=== PATIENT | female | born 1995 | race Caucasian/White ===

== ENCOUNTER 2022-06-04 07:43 | Observation (INO) | payer MEDICAID ==
[2022-06-04] MEDS ORDERED: PNV1TABL50 MT (11:03)
== END 2022-06-04 11:20 | disposition home or self-care (01) ==
LOC: 8 EST LDRP 07:43
PROVIDERS: ADMIT Obstetrics & Gynecology; ATTEND Obstetrics & Gynecology
DX: O62.9 Abnormality of forces of labor, unspecified (principal); O26.893 Other specified pregnancy related conditions, third trimester; R10.9 Unspecified abdominal pain; Z3A.39 39 weeks gestation of pregnancy
CPT/HCPCS: 59025; 76805; 76818; G0378; 99281

== ENCOUNTER 2022-06-07 08:53 | Inpatient (IN) | payer MEDICAID, MEDICARE ==
[~2022-06-07] VITALS: Ht 158.8 cm; Wt 79.4 kg
[~2022-06-07 08:53] MED LIST: PNV1TABL50 MT
[2022-06-07] MEDS ORDERED: ONDANSETRON HCL 4MG/2ML INJ IV PRN (10:00)
[2022-06-07] MEDS ORDERED: ACETAMINOPHEN 500MG TABLET PO PRN (10:00)
[2022-06-07] MEDS ORDERED: ACETAMINOPHEN 325MG TABLET PO PRN (10:00)
[2022-06-07] MEDS ORDERED: OXYTOCIN 30 UNITS/500ML NS PMX 500 ML IV SCH (10:15)
[2022-06-07] MEDS ORDERED: METHYLERGONOVINE MALEATE 0.2 MG/ML IM PRN (10:15)
[2022-06-07] MEDS ORDERED: NALOXONE HCL 0.4 MG/ML 1ML VIAL IM PRN (10:15)
[2022-06-07] MEDS ORDERED: MISOPROSTOL 100MCG TABLET VG PRN (10:15)
[2022-06-07] MEDS ORDERED: RHO(D) IMMUNE GLOBULIN 300 MCG/SYR IM NR (10:15)
[2022-06-07] MEDS ORDERED: LIDOCAINE HCL 1% 20ML VIAL (Pyxis) INJ INFIL SCH (10:15)
[2022-06-07] MEDS ORDERED: CARBOPROST TROMETHAMINE 250 MCG/ML AMPUL IM PRN (10:15)
[2022-06-07 10:42] LABS: BASOPHILS % 0.4 % (0.0-2.0); EOSINOPHILS % 0.5 % (0.0-5.0); HEMATOCRIT. 36.8 % (36.0-48.0); HEMOGLOBIN. 12.8 g/dL (12.0-16.0); LYMPHOCYTES % 21.9 % (20.0-50.0); MEAN CORPUSCULAR VOLUME 88.9 fL (81.0-99.0); MONOCYTES % 5.7 % (2.0-8.0); NEUTROPHILS % 71.5 % (40.0-76.0); PLATELET 283 x1000/uL (130-400); RED BLOOD CELL COUNT 4.14 mill/uL (4.2-5.4); RED CELL DISTRIBUTION WIDTH 13.1 % (11.6-14.6)
[2022-06-07 10:53] LABS: INR 0.9; PARTIAL THROMBOPLASTIN TIME 27.2 sec (23.4-31.0)
[2022-06-07 10:54] LABS: CLARITY URINE TURBID (CLEAR); COLOR URINE YELLOW (YELLOW); KETONES URINE NEGATIVE (NEGATIVE); LEUKOCYTE ESTERASE URINE 3+ (NEGATIVE); NITRITE URINE NEGATIVE (NEGATIVE); OCCULT BLOOD URINE TRACE (NEGATIVE); PH URINE 6.5 (4.5-8.0); PROTEIN URINE 1+ (NEGATIVE); SPECIFIC GRAVITY URINE 1.026 (1.005-1.030)
[2022-06-07] MEDS ORDERED: LACTATED RINGERS 1,000 ML IV SCH (11:00)
[2022-06-07 13:24] LABS: *AMPHETAMINES SCREEN URINE NEGATIVE (NEGATIVE); *BARBITURATES SCREEN URINE NEGATIVE (NEGATIVE); *BENZODIAZEPINES SCREEN URINE NEGATIVE (NEGATIVE); *COCAINE SCREEN URINE NEGATIVE (NEGATIVE); METHADONE URINE SCREEN NEGATIVE (NEGATIVE); OPIATES URINE SCREEN NEGATIVE (NEGATIVE); PHENCYCLIDINE URINE SCREEN NEGATIVE (NEGATIVE)
[2022-06-07 13:26] LABS: CANNABINOID URINE SCREEN PRESUMTIVE POSITIVE (NEGATIVE)
[2022-06-07 17:52] LABS: HEPATITIS B SURFACE ANTIGEN NEGATIVE
[2022-06-07] MEDS ORDERED: PENICILLIN G POTASSIUM 5 MMU in DEXT 5% WATER 100 ML IV SCH (18:30)
[2022-06-07] MEDS: OXYTOCIN 30 UNITS/500ML NS PMX 500 ML IV SCH (20:29)
[2022-06-07] MEDS ORDERED: MINERAL OIL 30ML BOTTLE TOP NR (21:15)
[2022-06-07] MEDS ORDERED: PENICILLIN G POTASSIUM 2.5 MMU in DEXTROSE 5% WATER 50 ML IV SCH (22:00)
[2022-06-07] MEDS: BUTORPHANOL TARTRATE 2 MG/ML VIAL IV PRN (22:26)
[2022-06-08] MEDS: BUTORPHANOL TARTRATE 2 MG/ML VIAL IV PRN (02:08)
[2022-06-08] MEDS ORDERED: ROPIVACAINE HCL/PF EPIDURAL 200 ML EPI ONE (03:23)
[2022-06-08] MEDS ORDERED: FENTANYL CITRATE/PF 50MCG/ML 2ML VIAL ONE (03:24)
[2022-06-08] MEDS ORDERED: LACTATED RINGERS 1,000 ML IV SCH (05:15)
[2022-06-08] MEDS: OXYTOCIN 30 UNITS/500ML NS PMX 500 ML IV SCH (09:21)
[2022-06-08 10:30] VITALS: BP 106/69
[2022-06-08 16:00] VITALS: BP 95/51
[2022-06-08 20:15] VITALS: BP 100/49
[2022-06-08] MEDS: IBUPROFEN 800MG TABLET PO PRN (20:28)
[2022-06-09 01:00] VITALS: BP 89/50
[2022-06-09 04:00] VITALS: BP 91/53
[2022-06-09 08:00] VITALS: BP 99/56
[2022-06-09 08:17] LABS: BASOPHILS % 0.2 % (0.0-2.0); EOSINOPHILS % 0.2 % (0.0-5.0); HEMOGLOBIN. 7.2 g/dL (12.0-16.0); LYMPHOCYTES % 18.6 % (20.0-50.0); MEAN CORPUSCULAR HEMOGLOBIN 31.6 pg (28.0-32.0); MEAN CORPUSCULAR VOLUME 90.4 fL (81.0-99.0); MEAN PLATELET VOLUME 8.1 fl (7.4-10.4); MONOCYTES % 5.9 % (2.0-8.0); NEUTROPHILS % 75.1 % (40.0-76.0); PLATELET 184 x1000/uL (130-400); RED BLOOD CELL COUNT 2.27 mill/uL (4.2-5.4); RED CELL DISTRIBUTION WIDTH 13.2 % (11.6-14.6)
[2022-06-09 08:19] LABS: HEMATOCRIT. 20.6 % (36.0-48.0)
[2022-06-09 16:00] VITALS: BP 93/47
[2022-06-09 20:00] VITALS: BP 109/59
[2022-06-09] MEDS: IBUPROFEN 800MG TABLET PO PRN (22:22)
[2022-06-10 04:00] VITALS: BP 90/52
[2022-06-10] MEDS: IBUPROFEN 800MG TABLET PO PRN (05:25)
[2022-06-10 08:00] VITALS: BP 106/60
[2022-06-10] MEDS ORDERED: IBUP-2029 MT (14:03)
== END 2022-06-10 14:45 | disposition home or self-care (01) | DRG 560 ==
LOC: OBSVTOIN 08:53 → 8 EST LDRP 08:53 → 8EST 06-08 10:12
PROVIDERS: ADMIT Obstetrics & Gynecology; ATTEND Obstetrics & Gynecology
PROC: 10E0XZZ Delivery of Products of Conception, External Approach (ICD-10-PCS; principal; 2022-06-08)
PROC: 3E0R3BZ Introduction of Anesthetic Agent into Spinal Canal, Percutaneous Approach (ICD-10-PCS; 2022-06-08)
PROC: 00HU33Z Insertion of Infusion Device into Spinal Canal, Percutaneous Approach (ICD-10-PCS; 2022-06-08)
DX: O99.02 Anemia complicating childbirth (principal); Z37.0 Single live birth; D62 Acute posthemorrhagic anemia; O99.324 Drug use complicating childbirth; F12.10 Cannabis abuse, uncomplicated; Z3A.39 39 weeks gestation of pregnancy; Z20.822 Contact with and (suspected) exposure to COVID-19
CPT/HCPCS: 36415; 76815; 76818; 80305; 80349; 81003; 85025; 86592; 86703; 86762; 86850; 86900; 87077; 87340; 87426; 99281; J0595; J2210; J2540; J2795; J3010; J7060; J7120; J2590